=== PATIENT | female | born 1960 ===

== ENCOUNTER 2024-12-19 15:11 | Emergency (ER) | payer BC, SELFPAY ==
--- NOTE | ~2024-12-19 | CT_ITS ---
CLINICAL HISTORY: dizzy headache CT Head without contrast. CT angiography head and neck with contrast. 3D Postprocessing. Comparison: None provided Findings: HEAD CT: No intra-axial mass, midline shift, hydrocephalus, or acute hemorrhage. No significant atrophy-like change or white matter disease. Mucosal thickening of the bilateral ethmoid air cells and left maxillary sinus. The orbits are within normal limits. There is no acute fracture. HEAD AND NECK CTA: Aortic arch and cervical great vessels are patent. Intracranial arteries are patent. No aneurysm, dissection, or occlusion. No abnormal intracranial enhancement. The visualized thyroid gland is unremarkable. No cervical mass or fluid collection. Lung apices clear. No acute fracture. IMPRESSION: 1. Unremarkable head CT. 2. Patent head and neck CTA. This document has been electronically signed by: Fady Hood MD on 12/19/2024 21:45:19
--- OUTSIDE RECORDS SUMMARY | 2024-12-19 14:30 | XMS_ITS | Encounter Summary ---
Author Organization [facility] Address [address] [place] [address] Care Team Providers Care Sql Data Architect Name Role Phone Za Bee MD Primary Care Provider [phone] Reason for Visit * Reason Comments Dizziness Headache Encounter Details Date Type Department Care Team (Late st Contact Info) Description 12/19/2024 2:30 PM EDT Office Visit [address] [phone] Za Bee MD [address] [place] [address] Hypertensive emergency (Primary Dx); Nonintractable episodic headache, unspecified headache type; Dizziness Social History Tobacco Use Types Packs/Day Years Used Date Smoking Tobacco: Never Passive Smoke Exposure: Never Smokeless Tobacco: Never Alcohol Use Standard Drinks/Week Comments Not Currently 0 (1 standard drink = 0.6 oz pur e alcohol) Comments No Sex and Gender Information Value Date Recorded Sex Assigned at Not on file Legal Sex Female 5:36 AM EST Gender Identity Not on file Sexual Orientation Not on file documented as of this encounter Last Filed Vital Signs Vital Sign Reading Time Taken Comments Blood Pressure 168/92 12/19/2024 2:45 PM EDT Pulse 98 12/19/2024 2:45 PM EDT Temperature 36.9 C (98.4 F) 12/19/2024 2:45 PM EDT Respiratory Rate 14 12/19/2024 2:45 PM EDT Oxygen Saturation 98% 12/19/2024 2:45 PM EDT Inhaled Oxygen Concentration - - Weight 68.9 kg (152 lb) 12/19/2024 2:45 PM EDT Height 157.5 cm (5' 2 ) 12/19/2024 2:45 PM EDT Body Mass Index 27.8 12/19/2024 2:45 PM EDT documented in this encounter Progress Notes * Za Bee MD - 12/19/2024 2:30 PM EDT Images from the original note were not included. CHIEF COMPLAINT: Dizziness and Headache IDENTIFIER: Kayy Powell is a 64 y.o. old female. HPI: Patient is a 64-year-old female who presented for an acute visit for evaluation of dizziness and headache. This is my initial visit with the patient, last visit in office was about 2 years ago. Patient reports intermittent of dizziness ongoing for the last 1 month, reports yesterday she had 2episodes of very sharp pain which she described as worst headache that she has ever gotten through her head shooting from her forehead into her ear lasted few minutes and then resolved and then came back and resolved again. No recurrence of headaches but continues to experience intermittent dizziness. No visual disturbance. Patient's vital signs reveal blood pressure of 168/92 (no prior history of hypertension), heart rate 98, 98% on room air, respiratory rate 14. I had a discussion with the patient and given that she has symptoms of ongoing dizziness episodic headache and elevated blood pressure concern is for hypertensive emergency,and patient needs urgent evaluation at the ER with blood work and head imaging. Patient's last blood work was in 2022 which did show she had elevated creatinine levels and requires a urgent recheck on this specially if she hasbeen having elevated blood pressures chronically as she has not been evaluated in 2 years and has not had any recent blood work in 2 years as well ROS: Review of systems: Pertinent items are noted in HPI PAST MEDICAL HISTORY: Patient Active Problem List Diagnosis Date Noted Bipolar disorder ([facility] V24, [facility] V28) 03/01/2024 Fibromyalgia 03/01/2024 Microscopic hematuria 03/01/2024 Dyslipidemia 11/04/2015 Mild dysplasia of cervix 04/11/2006 SOCIAL HISTORY: Social History Tobacco Use Smoking status: Never Passive exposure: Never Smokeless tobacco: Never Substance Use Topics Alcohol use: Not Currently FAMILY HISTORY: Family Status Relation Name Status Mother Alive Father Alive PGF (Not Specified) Other m cousin 40s Neg Hx (Not Specified) Sister Alive Sister Alive Sister Alive Brother Alive Brother Alive No partnership data on file Family History[1] ACTIVE MEDICATIONS: Medications Taking[2] ALLERGIES: Other PHYSICAL EXAM: Blood pressure (!) 168/92, pulse 98, temperature 36.9 ??C (98.4 ??F), temperature source Temporal, resp. rate 14, height 1.575 m (62 ), weight 68.9 kg (152 lb), SpO2 98%. Body mass index is 27.8 kg/m??. Plan is deferred until next visit APPEARANCE: Alert and in no acute distress EYES: PERRLA, conjunctiva and sclera normal HEART: RRR with normal S1 and S2, no murmurs, no gallops, no JVD appreciated LUNG: clear to auscultation bilaterally EXTREMITIES: Extremities warm and well perfused without clubbing, cyanosis, or edema NEURO: Awake, alert and oriented x 3 and Normal gait LABS: IMPRESSION: 1. Hypertensive emergency 2. Nonintractable episodic headache, unspecified headache type 3. Dizziness ASSESSMENT/PLAN: Kayy was seen today for dizziness and headache. Diagnoses and all orders for this visit: Hypertensive emergency (Primary) Nonintractable episodic headache, unspecified headache type Dizziness Plan Patient is a 64-year-old female who presented for an acute visit for evaluation of dizziness and headache. This is my initial visit with the patient, last visit in office was about 2 years ago. Patient reports intermittent of dizziness ongoing for the last 1 month, reports yesterday she had 2episodes of very sharp pain which she described as worst headache that she has ever gotten through her head shooting from her forehead into her ear lasted few minutes and then resolved and then came back and resolved again. No recurrence of headaches but continues to experience intermittent dizziness. No visual disturbance. Patient's vital signs reveal blood pressure of 168/92 (no prior history of hypertension), heart rate 98, 98% on room air, respiratory rate 14. I had a discussion with the patient and given that she has symptoms of ongoing dizziness episodic headache and elevated blood pressure concern is for hypertensive emergency,and patient needs urgent evaluation at the ER with blood work and head imaging. Patient's last blood work was in 2022 which did show she had elevated creatinine levels and requires a urgent recheck on this specially if she hasbeen having elevated blood pressures chronically as she has not been evaluated in 2 years and has not had any recent blood work in 2 years as well - Patient verbalized understanding and agreeable to go to the ER however declines EMS, she is asymptomatic at this time and would like to drive herself. I offered to call patient's daughter however patient declined states that she will update them herself. Patient wishes to go to [facility], heads up call will be placed. No follow-ups on file. No orders of the defined types were placed in this encounter. No results found for this or any previous visit (from the past 4 weeks). Za Bee MD on 12/19/2024 at 3:06 PM EDT [1] Family History Problem Relation Name Age of Onset Thyroid disease Mother Asthma Mother Diabetes Father Hypertension Father Stroke Father Diabetes Paternal Grandfather Other cancer Paternal Grandfather throat Breast cancer Other m cousin 40s Colon cancer Neg Hx Ovarian cancer Neg Hx [2] Outpatient Medications Marked as Taking for the 12/19/24 encounter (Office Visit) with Za Bee MD Medication Sig Dispense Refill bisacodyL (DULCOLAX) 5 mg EC tablet Take 2 tabs at 6pm as directed. lamoTRIgine (LaMICtal) 200 mg tablet Take 200 mg by mouth daily. documented in this encounter Plan of Treatment Upcoming Encounters Date Type Department Care Team (Late st Contact Info) Description 04/17/2025 9:30 AM EST Office Visit Adult Medicine [address] [phone] Za Bee MD [address] [place] [address] documented as of this encounter Visit Diagnoses Diagnosis Hypertensive emergency- Primary Nonintractable episodic headache, unspecified headache type Dizziness Dizziness and giddiness documented in this encounter Discontinued Medications Medication Sig Discontinue Reason Start Date End Da te buPROPion XL (WELLBUTRIN XL) 150 mg 24 hr tablet Take 1 tablet (150 mg total) by mouth 1 (one) time each day. Discontinued by another clinician 11/09/2022 12/19/2024 documented as of this encounter Care Teams Sql Data Architect Relationship Specialty Start Date End Date Za Bee MD [address] [place] [phone] PCP - General 11/23/22 documented as of this encounter
[2024-12-19 15:14] VITALS: BP 184/80; PULSE 69; RESP 18; TEMP 36.6; O2SAT 97; BMI 27.3
--- NOTE | 2024-12-19 15:17 | ED_ITS ---
HPI - General Adult General Chief complaint: Headache Stated complaint: headache Time Seen by Provider: 12/19/24 19:05 Source: patient Limitations: no limitations and other (Poor historian) History of Present Illness ED Provider: Sheeba Conley PA-C HPI narrative: 64-year-old female with a history of bipolar disorder presents with presumed ?dizziness? since the beginning of October. Patient is a very poor historian, when asked if she has been dizzy, she states ?I feel funny in my head ?. When asked if she has a headache, she states ?no, but there is something right here?, as she points to the left parietal region. Denies nausea, vomiting, photophobia, phonophobia. Denies recent illness, fever or neck pain. Changes in position do not recreate the sensation she is experiencing. Denies the use of illicit substances or alcohol. Related Data Allergies Allergy/AdvReac Type Severity Reaction Status Date / Time No Known Allergies Allergy Verified 12/19/24 15:16 Review of Systems 2 Review of Systems: Yes all other systems are reviewed and are negative Constitutional: Constitutional: Denies fatigue, Denies fever(s) and Reports headache(s) Eyes: Eyes: Denies change in vision ENT: Denies vertigo, Reports dizziness, Reports headache(s) and Denies neck pain Cardiovascular: Cardiovascular: Denies chest pain and Denies dyspnea Respiratory: Respiratory: Denies cough and Denies dyspnea Gastrointestinal: Gastrointestinal: Denies abdominal pain, Denies nausea and Denies vomiting Musculoskeletal: Musculoskeletal: Denies neck pain Neurologic: Denies vertigo, Reports dizziness and Reports headache(s) Endocrine: Endocrine: Denies fatigue [facility] Past Medical History Attestation statement: The following information was validated with the patient. Social History Social History Alcohol intake: never Use of substances other than those prescribed or required for medical reasons: No Advance Directives: No Advance Directives Information Provided: Yes Patient : No Physical Exam ED Vital Signs: Vital Signs - 24 hr 12/19/24 15:14 12/19/24 18:46 12/19/24 20:08 Temperature 97.9 F Pulse Rate 69 59 53 Respiratory Rate 18 18 Blood Pressure 184/80 H 158/72 H 129/67 Pulse Oximetry 97 97 Oxygen Delivery Method Room Air Room Air 12/19/24 20:12 12/19/24 20:13 12/19/24 20:27 Temperature 97.6 F Pulse Rate 55 58 62 Respiratory Rate 12 Blood Pressure 145/80 H 135/77 135/77 Pulse Oximetry 97 Oxygen Delivery Method Room Air 12/20/24 00:23 Temperature 97.4 F Pulse Rate 52 Respiratory Rate 12 Blood Pressure 141/78 H Pulse Oximetry 99 Oxygen Delivery Method Room Air BMI result Body Mass Index 27.3 Const Other: Alert well-appearing Orientation/consciousness: patient oriented x3 Eyes Other: No nystagmus Resp Effort & Inspection: normal respiratory effort Cardio Other: Normal peripheral perfusion Skin Other: Warm dry no rash Neuro Other: No ataxia General: patient oriented x3, gait normal, no focal motor deficits and CN's II- XI intact bilaterally Psych Other: Cooperative NIH Stroke Scale Level of Consciousness: Alert Level of Consciousness Questions: Answers both questions correctly Level of Consciousness Commands: Performs both tasks correctly Best Gaze: Normal Visual: No visual loss Facial Palsy: Normal Motor Arm (Right): No drift Motor Arm (Left): No drift Motor Leg (Right): No drift Motor Leg (Left): No drift Limb Ataxia: Absent Sensory: Normal Best Language: No aphasia Dysarthia: Normal Extinction and Inattention: No abnormality Score: 0 Course Course Course Narrative: This is an RME: Additional HPI, ROS, PE not included below will be deferred to primary provider. RME assessment and note performed by: Leni Bo PA-C This is a 64-year-old female who presents emergency department with complaints of dizziness ongoing since October. She also reports that she has had some headaches with sharp pain shooting across her as since yesterday. Denies any vision changes. Neuro are intact. Dizziness is unchanged with positional changes. Plan: Labs, EKG, further ER evaluation needed. Medications Administered Discontinued Medications Generic Name Dose Route Start Last Admin Trade Name Freq PRN Reason Stop Dose Admin Acetaminophen 1,000 mg in 100 mls @ 400 mls/hr 12/19/24 19:37 12/19/24 20:55 Ofirmev IV 12/19/24 19:51 Infused ONCE ONE Infusion Iohexol 100 ml 12/19/24 20:52 12/19/24 20:53 Iohexol 350 Mg/Ml 100 Ml Infus..Btl IV 12/19/24 20:53 70 ml ONCE ONE Administration Medical Decision Making Medical Decision Making MDM Narrative: 64-year-old female with a history of bipolar disorder presents with presumed ?dizziness? since the beginning of October. Patient is a very poor historian, when asked if she has been dizzy, she states ?I feel funny in my head ?. When asked if she has a headache, she states ?no, but there is something right here?, as she points to the left parietal region. Denies nausea, vomiting, photophobia, phonophobia. Denies recent illness, fever or neck pain. Changes in position do not recreate the sensation she is experiencing. Denies the use of illicit substances or alcohol. Problem: Bipolar disorder History: Per patient I have considered the following differential diagnoses: CVA, vertigo, meningitis, migraine, dehydration, arrhythmia, electrolyte abnormality, orthostasis , ACS Plan: ACS was considered, however the patient has no risk factors for coronary artery disease beyond her age. Screening labs including EKG and a troponin obtained. There was also no new arrhythmia documented on the EKG to account for her suspect dizziness, she also has not complained of palpitations. There were no underlying organic causes for her symptoms; i.e. dehydration, anemia. Thought about meningitis, however no meningeal signs on exam in his she does not complain of neck pain. Her symptoms are also not vertiginous in nature. The greatest concern would be potential posterior circulation stroke, although she has had symptoms to some degree for a month, she is not objectively ataxic. We will order angiograms. Obtain orthostatic vitals, they are normal. I have independently reviewed the following tests: Labs: No leukocytosis, not anemic, no electrolyte abnormality troponin less than 2.7 EKG: Normal sinus rhythm, rate of 64, no ischemic changes no ectopy QTC 420, nonspecific ST abnormality noted CT angio head/neck: IMPRESSION: 1. Unremarkable head CT. 2. Patent head and neck CTA. Differential Diagnosis Differential Diagnoses: The differential diagnosis associated with the presentation includes See medical decision-making Admission/Observation Consideration of admission/observation: Escalation of care including admission/observation considered Not applicable Lab Data MDM Lab Attestation statement: I reviewed the patient's lab results. 12/19/24 15:29 12/19/24 15:29 Labs: Lab Results 12/19/24 Range/Units 15:29 WBC 5.9 (4.8-10.8) X10*3/uL RBC 5.10 (4.20-5.50) X10*6/uL Hgb 13.4 (12.0-16.0) g/dl Hct 41.8 (37.0-47.0) % MCV 82.0 (80.0-98.0) fL MCH 26.3 L (27.0-33.0) pg MCHC 32.1 (31.0-35.0) g/dl RDW 12.5 (11.0-16.0) % Plt Count 254 (160-400) X10*3/uL MPV 10.6 (9.4-12.3) fL Immature Gran % (Auto) 0.2 (0.0-0.4) % Neut % (Auto) 57.9 (45-73) % Lymph % (Auto) 30.9 (20-40) % Imperial % (Auto) 6.8 (2-11) % Eos % (Auto) 3.2 (0-4) % Baso % (Auto) 1.0 (0-2) % Lymph # (Auto) 1.8 (1.2-4.9) X10*3/uL Imperial # (Auto) 0.4 (0.1-1.2) X10*3/uL Eos # (Auto) 0.2 (0.0-0.4) X10*3/uL Baso # (Auto) 0.1 (0.0-0.2) X10*3/uL Abs Immat Gran (auto) 0.01 (0.00-0.03) X10*3/uL Absolute Neuts (auto) 3.4 (2.0-8.3) x10*3/uL Absolute Nucleated RBC 0.000 (0.0-0.012) X10*3/uL Nucleated RBC % (auto) 0.0 (0.0-0.2) /100WBC Sodium 144 (135-145) mmol/L Potassium 3.6 (3.3-5.1) mmol/L Chloride 110 H (96-108) mmol/L Carbon Dioxide 26 (22-29) mmol/L Anion Gap 12 (12-20) BUN 17 H (9-16) mg/dL Creatinine 0.89 (0.5-1.4) mg/dL Estim Creat Clear Calc 59.2 Estimated GFR > 60 Random Glucose 105 (60-115) mg/dL Calcium 9.7 (8.4-10.2) mg/dL Magnesium 2.2 (1.6-2.6) mg/dL Total Bilirubin 0.3 (0.0-1.0) mg/dL Direct Bilirubin 0.1 (0.0-0.5) mg/dL AST 21 (5-31) U/L ALT 32 H (0-31) U/L Alkaline Phosphatase 59 (39-117) U/L Troponin I High Sens < 2.7 (<3.5-17.0) ng/L Total Protein 7.3 (6.5-8.0) g/dL Albumin 4.6 (3.5-5.0) g/dL Independent Interpretation I performed an independent interpretation of an: EKG Radiology Impression Discussion of test interpretation with radiology: I have reviewed the radiologist's reading. Discharge Plan Discharge Clinical Impression: Dizziness Patient Disposition: Home, Self-Care Instructions: Dizziness (ED) Additional Instructions: You were assessed for a stroke, your assessment was completely normal. You had no lab abnormalities, you were not dehydrated. Continue to follow up with your primary care. Print Language: Sri Lankan
--- NOTE | 2024-12-19 15:20 | ECG_ITS ---
Test Reason : dizziness Blood Pressure : */* mmHG Vent. Rate : 64 BPM Atrial Rate : 64 BPM P-R Int : 172 ms QRS Dur : 98 ms QT Int : 408 ms P-R-T Axes : 17 -3 47 degrees QTcB Int : 420 ms Normal sinus rhythm Minimal voltage criteria for LVH, may be normal variant ( [place] product ) Nonspecific ST abnormality Abnormal ECG No previous ECGs available Referred By: Leni Bo Electronically Signed By: DAVID LENNON MD
[2024-12-19 15:41] LABS: MANUAL DIFF FLAG NO
[2024-12-19 15:43] LABS: Hematocrit 41.8 % (37.0-47.0); Hemoglobin 13.4 g/dl (12.0-16.0); Imm Gran Abs Auto 0.01 X10*3/uL (0.00-0.03); Imm Gran Pct Auto 0.2 % (0.0-0.4); Lymphocytes Absolute Auto 1.8 X10*3/uL (1.2-4.9); Mean Corpuscular HGB Conc 32.1 g/dl (31.0-35.0); Mean Corpuscular Hemoglobin 26.3 pg (27.0-33.0); Mean Corpuscular Volume 82.0 fL (80.0-98.0); NRBC Abs Auto 0.000 X10*3/uL (0.0-0.012); NRBC Pct Auto 0.0 /100WBC (0.0-0.2); Platelet Count 254 X10*3/uL (160-400); Red Blood Count 5.10 X10*6/uL (4.20-5.50); White Blood Count 5.9 X10*3/uL (4.8-10.8)
[2024-12-19 15:57] LABS: Alanine Aminotransferase 32 U/L (0-31); Albumin Level 4.6 g/dL (3.5-5.0); Alkaline Phosphatase 59 U/L (39-117); Anion Gap 12 (12-20); Aspartate Amino Transferase 21 U/L (5-31); Blood Urea Nitrogen 17 mg/dL (9-16); Calcium 9.7 mg/dL (8.4-10.2); Carbon Dioxide 26 mmol/L (22-29); Chloride 110 mmol/L (96-108); Creatinine Clr Calc Pharmacy 59.2; Estimated Glomerular Filt Rate > 60; Magnesium 2.2 mg/dL (1.6-2.6); Potassium 3.6 mmol/L (3.3-5.1); Sodium 144 mmol/L (135-145); Total Protein 7.3 g/dL (6.5-8.0)
[2024-12-19 16:08] LABS: Troponin-I High Sensitivity < 2.7 ng/L (<3.5-17.0)
[2024-12-19 18:46] VITALS: BP 158/72; PULSE 59; RESP 18; O2SAT 97
--- OUTSIDE RECORDS SUMMARY | 2024-12-19 19:43 | XMS_ITS | Encounter Summary ---
Author Organization [facility] Address [address] [place] [address] Care Team Providers Care Rayon Tester Name Role Phone Za Bee MD Primary Care Provider [phone] Reason for Visit * Reason Onset Date Comments Dizziness 12/19/2024 Encounter Details Date Type Department Care Team ([facility] st Contact Info) Description 12/19/2024 Telephone Adult Medicine [facility] [address] [place] [address] Za Bee MD [address] [place] [address] Social History Tobacco Use Types Packs/Day Years [...] on file documented as of this encounter Progress Notes * Za Bee MD - 12/19/2024 2:15 PM EDT My recommendation would be the same to go to the ER given symptoms of dizziness with severe headache. I have asked Marilyn to bring the patient in so I can convey the same and have a discussion withher, since she is refusing to leave * Katarzyna Laguna RN - 12/19/2024 1:35 PM EDT Pt is C/O dizziness starting suddenly last month , one or two episodes , she called 11/07 and 11/08 and was advised to go to the er , she did not go Pt had sudden onset of dizziness again on Monday she went to the school nurse BP was normal Yesterday pt was dizzy and she has 2 episodes of a very sharp pain ( worst headache pain she has ever had shot through her head ) shooting thought her head from her forehead into her ear, lasted justminutes then gone, came back pain , no VENEGAS since but she is still dizzy Pt denies any chest pain or SOB, denies any changes in HR, no recent N/V/D or head trauma, pt has no confusion or changes in speech, no weakness or numbness, denies headache or any changes in vision., pt has not changed or stopped medication or caffeine intake Pt feels dizzy now , off balance Pt is advised to go to the ed , she has refused she is in the lobby and states she is not l;leavinguntil she is seen * Karen Onofre - 12/19/2024 1:25 PM EDT Patient call requires triage: Symptoms patient is presenting: Dizziness How long has patient had these symptoms?: over a month For ALL patients calling to schedule any appointment (routine, sick visit, follow up, consult, etc.) in the outpatient setting please ask the following questions: Do you have fever of higher than 101, sore throat with difficulty swallowing or severe shortness ofbreath? no If YES to any of these above symptoms, send a message to triage and do not book. Red dot. If no, an audio or video visit should be booked. Have you had close contact with someone with Coronavirus in the last 14 days? no Have you traveled abroad? no Have you traveled recently to another state outside of [place], [place], [place], [place], [place], [place], [place]? no o If yes, did you quarantine for 14 days or have a negative covid test? no If yes to any of the above, patient is not to be scheduled in office until after 14 day quarantine or negative covid test. If pain or injury related was it due to an accident at work or from a motor vehicle accident? If yes, date of accident/Injury: No If yes, gather 3rd alliance party insurance information Third Green Party Information: not applicable PCP: Za Bee MD Payor: JENNIFER Ramirez MA / Plan: [facility] HMO / Product Type: *No Product type* / documented in this encounter Plan of Treatment Upcoming Encounters Date Type Department Care Team (Late st Contact Info) Description 04/17/2025 9:30 AM EST Office Visit Adult Medicine [address] [phone] Za Bee MD [address] [place] [address] documented as of this encounter Visit Diagnoses Not on filedocumented in this encounter Care Teams Rayon Tester Relationship Specialty Start Date End Date Za Bee MD [address] [place] [address] PCP - General 11/23/22 documented as of this encounter
--- OUTSIDE RECORDS SUMMARY | 2024-12-19 19:43 | XMS_ITS | Clinical Summary ---
Author Organization [address] Address [address] [place] [address] Phone Care Team Providers [employer] Name Role Phone Za Bee MD Primary Care Provider [phone] Allergies Active Allergy Reactions Criticality Noted Date Comments Other 04/20/2022 Seasonal Medications bisacodyL (DULCOLAX) 5 mg EC tablet Take 2 tabs at 6pm as directed. 4 Active lamoTRIgine (LaMICtal) 200 mg tablet Take 200 mg by mouth daily. Active MULTIVITAMIN ORAL Take by mouth daily. Active buPROPion XL (WELLBUTRIN XL) 150 mg 24 hr tablet Take 1 tablet (150 mg total) by mouth 1 (one) time each day. 3 12/20/19 25 Discontinue d(Discontin ued by another clinician) Active Problems Problem Noted Date Diagnosed Date Bipolar disorder ([facility] V24, [facility] V28) 04/2024 Overview (03/01/2024): Seeing therapist, waiting to see psychiatry Fibromyalgia 03/01/2024 Microscopic hematuria 03/01/2024 Dyslipidemia 11/04/2015 Mild dysplasia of cervix 04/11/2006 Encounters Date Type Department Care Team Description 12/19/2024 2:30 PM EDT Office Visit Adult Medicine [address] [phone] Za Bee MD Hypertensive emergency (Primary Dx); Nonintractable episodic headache, unspecified headache type; Dizziness 12/19/2024 Telephone Adult Medicine [address] [phone] Za Bee MD 11/08/2024 Telephone Adult Medicine [address] [phone] Za Bee MD 11/07/2024 Telephone Adult Medicine [address] [phone] Za Bee MD from Last 3 Months Immunizations Immunization Administration Dates Next Due Hepatitis B (Ikbppyn-D-Njxzp , Recombivax HB-Adult) 19yo and older 01/11/2006,11/23/2005 Influenza Quadravalent, MDCK , 0.5ml, preservative free (Flucelvax) 6mo and older 11/28/2022,05/15/2019,02/12/2018 Influenza trivalent, 0.5mL, preservative free (Fluarix; FluLaval; Fluzone) ages 6mo and older (Afluria) 3 years and older 12/08/2014,12/20/2013,02/11/2006 PPD Test 11/04/2015, 5,10/02/2013,2005 Td Tetanus diptheria (Tdvax) 7yo and older 11/23/2005 Tdap Tetanus diptheria acell ular pertussis (Boostrix; Adacel) 7yo and older 11/28/2022,09/11/2012 Surgical History Surgery Date Site/Laterality Comments TUBAL LIGATION PROCEDURE: HISTORICAL TUBAL LIGATION CERVICAL BIOPSY W/ LOOP ELECTRODE EXCISION 04/24/06 PROCEDURE: [facility] CONIZATION CERVIX W/WO D&C RPR ELTRD EXC; COMMENT: SHAZIA 1 with free margins COLONOSCOPY W/ BIOPSIES 04/01/2014 PROCEDURE: [facility] COLONOSCOPY W/BIOPSY SINGLE/MULTIPLE; COMMENT: 5 mm RC polyp: Sessile serrated adenoma. VENTRAL HERNIA REPAIR 09/03/15 PROCEDURE: HISTORICAL VTRL WALL HERNIA RE Medical History Medical History Date Comments Bipolar disorder (CMS/HCC V24, CMS/HCC V28) DX:Bipolar disorder (HCC) Fibromyalgia DX:Fibromyalgia Dyslipidemia DX:Dyslipidemia Microscopic hematuria DX:Microsc opic hematuria Family History Medical History Relation Name Comments Diabetes Father Hypertension Father Stroke Father Asthma Mother Thyroid disease Mother Breast cancer Other m cousin 40s Diabetes Paternal Grandfather Other cancer Paternal Grandfather throat Colon cancer Neg Hx Ovarian cancer Neg Hx Relation Name Status Comments Brother 1 Alive Brother 2 Alive Father Alive Mother Alive Other m cousin 40s Paternal Grandfather Sister 1 Alive Sister 2 Alive Sister 3 Alive Social History Tobacco Use Types Packs/Day Years [...] on file Sexual Orientation Not on file Obstetrics History Last Filed Vital Signs Vital Sign Reading [...] Mass Index 27.8 12/19/2024 2:45 PM EDT Plan of Treatment Upcoming Encounters Date Type Department Care Team (Late st Contact Info) Description 04/17/2025 9:30 AM EST Office Visit Adult Medicine [address] [phone] Za Bee MD [address] [place] [address] Health Maintenance Due Date Last Done Comments Hepatitis B Vaccines (3 of 3 - 19+ 3-dose series) 05/23/2006 01/11/2006, 11/23/2005 Pneumococcal Vaccine: 50+ Years (1 of 1 - PCV) 02/28/2012 Zoster Vaccines (1 of 2) 02/28/2012 Social Influencers of Health Screening 02/05/2022 Depression Screening 02/28/2024 COVID-19 Vaccine (4 - season) 2024 05/08/2021, 06/20/2020, 05/23/2020 Influenza Vaccine (#1) 2024 , 05/15/2019, 02/12/2018, Additional history exists Breast Cancer Screening 12/07/2024 12/08/19, 05/01/2021, 03/07/2020, Additional history exists Hypertension/CHF/CAD Annual BMP Blood Test 12/19/2024 Cholesterol Screening (Lipid Panel) 11/29/2027 11/28/2022 Cervical Cancer Screening: HPV 03/03/2028 03/03/2023 Colorectal Cancer Screening: Colonoscopy 08/23/2028 08/24/2023 DTaP,Tdap,and Td Vaccines (4 - Td or Tdap) 11/28/2032 11/28/2022, 09/11/2012, 11/23/2005 RSV Immunization Adult Patients (1 - 1-dose 75+ series) 2037 HIV Screening Completed 02/21/2018 Hepatitis C Screening Completed 02/21/2018 HIB Vaccines Aged Out No longer eligi ble based on patient's age to complete this topic HPV Vaccines Aged Out No longer eligi ble based on patient's age to complete this topic Hepatitis A Vaccines Aged Out No long er eligible based on patient's age to complete this topic IPV Vaccines Aged Out No longer eligi ble based on patient's age to complete this topic MMR Vaccines Aged Out No longer eligi ble based on patient's age to complete this topic Meningococcal ACWY Vaccine Aged Out N o longer eligible based on patient's age to complete this topic Meningococcal B Vaccine Aged Out No l onger eligible based on patient's age to complete this topic RSV Immunization Patients Under 20 months Aged Out No longer eligible based on patient's age to complete this topic Varicella Vaccines Aged Out No longer eligible based on patient's age to complete this topic Procedures Procedure Name Priority Date/Time Associated Diagnosis Comments COLONOSCOPY Routine 08/24/2023 HPV Routine 03/03/2023 SCREENING MAMMOGRAPHY BI 2-VIEW BREAST INC CAD Routine 12/07/2022 6:18 PM EDT Encounter for screening mammogram for malignant neoplasm of breast LIPID PANEL Routine 11/28/2022 HEPATITIS C SCREENING Routine 02/21/2018 HIV SCREENING Routine 02/21/2018 from Last 3 Months or Most Recently Relevant to Health Maintenance Results * Colonoscopy (08/24/2023) Colonoscopy no interpretation , abstracted Anatomical Region Laterality Modality Other us Historical Provider MD HEALTH MAINTENANCE Final Result * Cervical Cancer Screening: HPV (03/03/2023) Cervical Cancer Screening: HPV abstracted, negative us Historical Provider MD HEALTH MAINTENANCE Final Result * SCREENING MAMMOGRAPHY BI 2-VIEW BREAST INC CAD (12/07/2022 6:18 PM EDT) Anatomical Region Laterality Modality Radiographic Juliane ging 05/01/2021 11:3 4 AM EST Narrative 12/08/2022 5:55 PM EDT This is a summary report. The complete report is available in the patient's medical record. If you cannot access the medical record, please contact the sending organization for a detailed fax or copy. Exam: Screening mammogram Findings: Digital bilateral full-field screening mammography is performed with tomosynthesis and interpreted with the aid of computer-aided detection. Comparison is made with 05/01/2021 and as far back as 11/24/2018. Breast parenchyma is composed of scattered fibroglandular densities. No new suspicious mass, architectural distortion, or suspicious calcifications. Impression: No mammographic evidence of malignancy. BI-RADS 1 - negative Procedure Note Jolie López MD - 04/03/2023 This is a summary report. The complete report is available in thepatient's medical record. If you cannot access the medical record, pleasecontact the sending organization for a detailed fax or copy. Exam: Screening mammogram Findings: Digital bilateral full-field screening mammography is performedwith tomosynthesis and interpreted with the aid of computer-aideddetection. Comparison is made with 05/01/2021 and as far back as11/24/2018. Breast parenchyma is composed of scattered fibroglandular densities. Nonew suspicious mass, architectural distortion, or suspiciouscalcifications. Impression: No mammographic evidence of malignancy. BI-RADS 1 - negative Result [facility] Misa RICHTER IMG XR PROCEDURES Final Result * (ABNORMAL) Lipid panel (11/28/2022) Pathologist [facility] LDL/HDL Ratio 4 0 - 4 Triglycerides 230(A) 0 - 150 mg/dL Cholesterol 224(A) 0 - 200 mg/dL HDL 61 >=40 mg/dL LDL Cholesterol 117(A) 0 - 100 mg/dL Blood Venous blood specimen / Unknown Result [facility] Provider LAB BLOOD ORDERABLES Keiry l Result * HIV Screening (02/21/2018) Pathologist [facility] HIV Screening abstracted [facility] Provider HEALTH MAINTENANCE Final Result * Hepatitis C Screening (02/21/2018) [facility] Hepatitis C Screening abstracted [facility] Provider HEALTH MAINTENANCE Final Result from Last 3 Months or Most Recently Relevant to Health Maintenance Insurance [facility] Care Teams [employer] Usher Relationship Specialty Start Date End Date Za Bee MD [address] [place] [address] PCP - General 11/23/22
[2024-12-19 20:08] VITALS: BP 129/67; PULSE 53
[2024-12-19 20:12] VITALS: BP 145/80; PULSE 55
[2024-12-19 20:13] VITALS: BP 135/77; PULSE 58
[2024-12-19 20:27] VITALS: BP 135/77; PULSE 62; RESP 12; TEMP 36.4; O2SAT 97
[2024-12-19] MEDS: iohexoL 350 MG/ML 100 ML INFUS..BTL IV (20:53)
[2024-12-20 00:23] VITALS: BP 141/78; PULSE 52; RESP 12; TEMP 36.3; O2SAT 99
[2024-12-20 01:21] VITALS: BP 141/78; PULSE 52; RESP 18; TEMP 36.3; O2SAT 95
== END 2024-12-20 01:23 | disposition home or self-care (01) ==
PROVIDERS: Physician Assistant Medical; Emergency Provider Emergency Medicine
DX: R42 Dizziness and giddiness (principal); R51.9 Headache, unspecified; R94.31 Abnormal electrocardiogram [ECG] [EKG]; Z79.899 Other long term (current) drug therapy
CPT/HCPCS: 36415; 70496; 70498; 80048; 80076; 83735; 84484; 85025; 93005; 96365; 99285; J0131; Q9967

== ENCOUNTER → 2024-12-19 15:20 | Outpatient (BNV) | payer BC, SELFPAY | PROVIDERS: Visit Provider Internal Medicine Cardiovascular Disease | DX: R94.31 Abnormal electrocardiogram [ECG] [EKG] (principal); R42 Dizziness and giddiness | CPT/HCPCS: 93010 ==

== ENCOUNTER → 2024-12-19 19:37 | Outpatient (BNV) | payer BC, SELFPAY | PROVIDERS: Emergency Provider Emergency Medicine; Visit Provider Radiology Diagnostic Radiology | DX: R42 Dizziness and giddiness (principal); R51.9 Headache, unspecified | CPT/HCPCS: 70496; 70498 ==

== ENCOUNTER 2025-01-18 11:06 | Emergency (ER) | payer BC, SELFPAY ==
[2025-01-18 11:11] VITALS: BP 143/85; PULSE 78; RESP 18; TEMP 36.6; O2SAT 100; BMI 27.4
--- NOTE | 2025-01-18 11:18 | ED_ITS ---
HPI - Neck Pain/Injury General Chief Complaint: Neck Pain/Injury Stated Complaint: neck pain Time Seen by Provider: 01/18/25 11:12 Source: patient Mode of arrival: ambulatory Limitations: no limitations History of Present Illness ED Provider: Dr. Ricardo Davis HPI Narrative: 64-year-old female with a history of bipolar disorder who presents emergency department for evaluation of left neck pain x4 days. The patient states that she woke up 4 days prior with pain in her neck. The pain has gotten progressively worse to the point where she is unable to turn her neck to the left. She states the pain is a constant, sharp/pressure-like pain which is 10/10 at its worst. She did not take any medications for the pain. She denied any numbness or weakness of her upper extremities. She denied loss of bowel or bladder control. Patient denies tobacco, alcohol or injection drug use. She does not recount any recent injury to her neck Related Data Previous Rx's ?Medication ?Instructions ?Recorded cyclobenzaprine 10 mg tablet 10 mg PO TID PRN pain, mu scle 01/18/25 spasm #15 tabs Allergies Allergy/AdvReac Type Severity Reaction Status Date / Time No Known Allergies Allergy Verified 01/18/25 11:14 Review of Systems Review of Systems: Yes all other systems are reviewed and are negative [facility] Past Medical History [facility] Narrative: Social history: She denies tobacco, alcohol and injection drug use. Social History Social History Alcohol intake: never Smoked in Last 30 Days: No Use of substances other than those prescribed or required for medical reasons: No Advance Directives: No Advance Directives Information Provided: No Do you have a plan to hurt others: No Plan Patient : No Physical Exam Vital Signs: Vital Signs: Last Vital Signs Temp 97.8 F 01/18/25 11:11 Pulse 78 01/18/25 11:11 Resp 18 01/18/25 11:11 BP 143/85 H 01/18/25 11:11 Pulse Ox 100 01/18/25 11:11 O2 Del Method Room Air 01/18/25 11:11 BMI result Body Mass Index 27.4 Vital signs revealed an elevated blood pressure of 143/85 otherwise unremarkable Exam: General: Awake, alert in no distress Head: Normocephalic, atraumatic EENT: PERRL, sclera and conjunctiva are normal, mouth with no erythema or exudates Neck: The patient has tenderness palpation of her left trapezius muscle with spasm of this muscle and limited rotation of her head to the left secondary to pain and spasm Lung: breath sounds symmetric, no wheezing, no rales and no rhonchi Chest: symmetric movement, nontender Heart: regular rate and rhythm, normal S1, S2 no murmurs or rubs Abdomen: soft, non-tender, nondistended, normal bowel sounds Back: no vertebral tenderness, no CVAT Extremities: no deformities, moves all extremities symmetrically, no edema Neuro: Awake, alert, oriented, normal speech, cranial nerves 2-12 intact, moves all extremities symmetrically Psych: Pleasant, cooperative Medical Decision Making Medical Decision Making MDM Narrative: 64-year-old female with a history of bipolar disorder who presents emergency department for evaluation of left neck pain x4 days. The patient states that she woke up 4 days prior with pain in her neck. The pain has gotten progressively worse to the point where she is unable to turn her neck to the left. She states the pain is a constant, sharp/pressure-like pain which is 10/10 at its worst. She did not take any medications for the pain. She denied any numbness or weakness of her upper extremities. She denied loss of bowel or bladder control. Patient denies tobacco, alcohol or injection drug use. She does not recount any recent injury to her neck. Vital signs revealed an elevated blood pressure of 143/85 otherwise unremarkable. Exam is consistent with muscle spasm of the left trapezius muscle otherwise exam is unremarkable. Differential diagnosis: ?Includes but is not limited to trapezius strain/spasm, cervical sprain, degenerative joint disease, degenerative disc disease, nerve compression Course: 11:50 Patient was treated with Toradol 60 mg IM and given a hot pack to apply to her left trapezius muscle. Patient was advised to take Tylenol and ibuprofen for pain. She was prescribed Flexeril (cyclobenzaprine) 10 mg 3 times a day as needed for spasm. She was given printed and verbal instructions and discharged home. Differential Diagnosis Differential Diagnoses: The differential diagnosis associated with the presentation includes (See above) Admission/Observation Consideration of admission/observation: Escalation of care including admission/observation considered (No) Prescription Management I considered prescription management with: Other (Prescription for anti spasmodic: Cyclobenzaprine) Chronic Conditions Patient?s care impacted by: Other (Bipolar disorder) Discharge Plan Discharge Clinical Impression: Spasm of left trapezius muscle, Strain of left trapezius muscle Patient Disposition: Home, Self-Care Instructions: Muscle Strain (ED), Muscle Spasm (ED) Additional Instructions: Your exam is consistent with an injury/strain of your left neck muscle (trapezius muscle). This muscle also is in spasm and that is why you are having difficulty moving your neck. You were treated here in the emergency department with a strong intramuscular anti-inflammatory medication called Toradol (ketorolac). Take ibuprofen 200 mg pills, 2 pills every 6 hours as needed for pain or fever. Take Tylenol (acetaminophen) 500 mg pills, 2 pills every 6 hours as needed for pain or fever. Take Flexeril (cyclobenzaprine) 10 mg pills, 1 pill every 6-8 hours as needed for pain or spasm. ?This medication will make you sleepy. ?Do not drive or work while taking this medication. Apply heating pad on low for 15 minutes 4 to 6 times a day for the next 3-4 days to help reduce the pain in your neck. Follow-up with your doctor in 2 days. Please return to the emergency department if your symptoms get worse or if you develop any symptoms that are concerning to you. Prescriptions: New cyclobenzaprine 10 mg tablet 10 mg PO TID PRN (Reason: pain, muscle spasm) Qty: 15 0RF Print Language: Kenyan
--- NOTE | 2025-01-18 11:22 | PC.NURSE ---
Patient presents to ED with left sided neck 10/10 pain that started a couple days ago . Denies any blurry vision or associated headache. Mobility limited in neck due to pain. Neuro exam intact. VSS.
--- OUTSIDE RECORDS SUMMARY | 2025-01-18 11:35 | XMS_ITS | Clinical Summary ---
Author Organization [address] Address [address] [place] [address] Phone Care Team Providers Care Phone Operator Name Role Phone Za Bee MD Primary Care Provider [phone] Allergies Active Allergy Reactions Criticality Noted Date Comments Other 04/20/2022 Seasonal Medications lamoTRIgine (LaMICtal) 200 mg tablet Take 200 mg by mouth daily. Active MULTIVITAMIN ORAL Take by mouth daily. Active cyclobenzaprine (FLEXERIL) 5 mg tablet Take 1 tablet (5 mg total) by mouth at bedtime as needed for muscle spasms. 30 tablet 5 02/26/20 25 Active bisacodyL (DULCOLAX) 5 mg EC tablet Take 2 tabs at 6pm as directed. 4 12/28/19 25 Discontinu ed(Therapy completed) Active Problems Problem Noted Date Diagnosed Date Bipolar disorder ([facility] V24, [facility] V28) 04/2024 Overview (03/01/2024): Seeing therapist, waiting to see psychiatry Fibromyalgia 03/01/2024 Microscopic hematuria 03/01/2024 Dyslipidemia 11/04/2015 Mild dysplasia of cervix 04/11/2006 Encounters Date Type Department Care Team Description 01/01/2025 4:57 PM EST - 01/01/2025 11:59 PM EST Hospital Encounter Radiology Department - [address] [phone] Dizziness Discharge Disposition: Home or Self Care 12/30/2024 Results Follow-Up Adult [facility] [place] - [address] [phone] Za Bee MD 12/27/2024 9:30 AM EDT Lab Draw [address] Dyslipidemia 12/27/2024 8:30 AM EDT Office Visit [address] [phone] Za Bee MD Dyslipidemia (Primary Dx); Dizziness; Strain of trapezius muscle, unspecified laterality, initial encounter; Strain of right hamstring, initial encounter; Need for prophylactic vaccination and inoculation against influenza 12/19/2024 2:30 PM EDT Office Visit [address] [phone] Za Bee MD Hypertensive emergency (Primary Dx); Nonintractable episodic headache, unspecified headache type; Dizziness 12/19/[address] [phone] Za Bee MD 11/08/[address] [phone] Za Bee MD 11/07/[address] [phone] Za Bee MD from Last 3 Months Immunizations Immunization Administration Dates Next Due Hepatitis B (Vpnserc-F-Vukkr , Recombivax HB-Adult) 19yo and older 01/11/2006,11/23/2005 Influenza Quadravalent, MDCK , 0.5ml, preservative free (Flucelvax) 6mo and older 11/28/2022,05/15/2019,02/12/2018 Influenza trivalent, 0.5mL, preservative free (Fluarix; FluLaval; Fluzone) ages 6mo and older (Afluria) 3 years and older 12/08/2014,12/20/2013,02/11/2006 Influenza trivalent, MDCK, 0 .5mL, preservative free (Flucelvax) 6mo and older 12/27/2024 Influenza trivalent, with preservative (Fluzone; Afluria) 6mo and older 12/08/2014,12/20/2013,02/11/2006 PPD Test 11/04/2015, 5,10/02/2013,2005 Td Tetanus diptheria (Tdvax) 7yo and older 11/23/2005 Tdap Tetanus diptheria acell ular pertussis (Boostrix; Adacel) 7yo and older 11/28/2022,09/11/2012 Surgical History Surgery Date Site/Laterality Comments TUBAL LIGATION PROCEDURE: HISTORICAL TUBAL LIGATION CERVICAL BIOPSY W/ LOOP ELECTRODE EXCISION 04/24/06 PROCEDURE: WY CONIZATION CERVIX W/WO D&C RPR ELTRD EXC; COMMENT: SHAZIA 1 with free margins COLONOSCOPY W/ BIOPSIES 04/01/2014 PROCEDURE: WY COLONOSCOPY W/BIOPSY SINGLE/MULTIPLE; COMMENT: 5 mm RC polyp: Sessile serrated adenoma. VENTRAL HERNIA REPAIR 09/03/15 PROCEDURE: HISTORICAL VTRL WALL HERNIA RE Medical History Medical History Date Comments Bipolar disorder (CMS/HCC V24, [facility] V28) DX:Bipolar disorder (HCC) Fibromyalgia DX:Fibromyalgia Dyslipidemia [...] Sign Reading Time Taken Comments Blood Pressure 110/70 12/27/2024 8:42 AM EDT Pulse 70 12/27/2024 8:42 AM EDT Temperature 36 C (96.8 F) 12/27/2024 8:42 AM EDT Respiratory Rate 14 12/27/2024 8:42 AM EDT Oxygen Saturation 95% 12/27/2024 8:42 AM EDT Inhaled Oxygen Concentration - - Weight 69.9 kg (154 lb 1.6 oz) 12/27/2024 8:42 A M EDT Height 157.5 cm (5' 2 ) 12/27/2024 8:42 AM EDT Body Mass Index 28.19 12/27/2024 8:42 AM EDT Plan of Treatment Upcoming Encounters Date Type Department Care Team (Late st Contact Info) Description 01/21/2025 4:00 PM EST Evaluation Outpatient Rehabilitation - [address] [phone] Sumanth Gonzalez, KALLIE 04/17/2025 9:30 AM EST Office Visit Adult [facility] [place] - [address] [phone] Za Bee MD [address] [place] [address] Health Maintenance Due Date Last Done Comments Hepatitis B Vaccines (3 of 3 - 19+ 3-dose series) 05/23/2006 01/11/2006, 11/23/2005 Pneumococcal Vaccine: 50+ Years (1 of 1 - PCV) 02/28/2012 Zoster Vaccines (1 of 2) 02/28/2012 Social Influencers of Health Screening 02/05/2022 Depression Screening 02/28/2024 COVID-19 Vaccine ( - season) 2024 05/08/2021, 06/20/2020, 05/23/2020 Breast Cancer Screening 12/07/2024 12/08/19 23, 05/01/2021, 03/07/2020, Additional history exists Hypertension/CHF/CAD Annual BMP Blood Test 12/27/2025 12/27/2024 Cervical Cancer Screening: HPV 03/03/2028 03/03/2023 Colorectal Cancer Screening: Colonoscopy 08/23/2028 08/24/2023 Cholesterol Screening (Lipid Panel) 12/27/2029 12/27/2024, 11/28/2022 DTaP,Tdap,and Td Vaccines (4 - Td or Tdap) 11/28/2032 11/28/2022, 09/11/2012, 11/23/2005 RSV Immunization Adult Patients (1 - 1-dose 75+ series) 2037 HIV Screening Completed 02/21/2018 Hepatitis C Screening Completed 02/21/2018 Influenza Vaccine Completed 12/27/2024, , 05/15/2019, Additional history exists HIB Vaccines Aged Out No longer eligi [...] Procedure Name Priority Date/Time Associated Diagnosis Comments MR BRAIN WO CONTRAST Routine 01/01/2025 5:41 PM EST Dizziness HEMOGLOBIN A1C Routine 12/27/2024 9:50 AM EDT Dyslipidemia COMPREHENSIVE METABOLIC PANEL Routine 12/27/2024 9:50 AM EDT Dyslipidemia LIPID PANEL WITH REFLEX TO DIRECT LDL Routine 12/27/2024 9:50 AM EDT Dyslipidemia COLONOSCOPY Routine 08/24/2023 HPV Routine 03/03/2023 SCREENING MAMMOGRAPHY BI 2-VIEW BREAST INC CAD Routine 12/07/2022 6:18 PM EDT Encounter for screening mammogram for malignant neoplasm of breast HEPATITIS C SCREENING Routine 02/21/2018 HIV SCREENING Routine 02/21/2018 from Last 3 Months or Most Recently Relevant to Health Maintenance Results * MR Brain wo Contrast (01/01/2025 5:41 PM EST) Anatomical Region Laterality Modality Head and Neck Magnetic Resonan ce 01/02/2025 10:3 6 AM EST Impressions 01/02/2025 10:56 AM EST Impression: 1. No acute intracranial abnormality. 2. Minimal white matter hyperintensities within the supraventricular and periventricular region consistent with microvascular ischemic changes. 3. Moderate mucosal thickening of the paranasal sinuses. -------- FINAL REPORT -------- Dictated By: Minerva Aguilar Dictated Date: 01/02/2025 10:36 ET Assigned Physician: Minerva Aguilar Reviewed and Electronically Signed By: Minerva Aguilar Signed Date: 01/02/2025 10:56 ET Workstation ID: [id number] Transcribed By: Self Edit Transcribed Date: 01/02/2025 10:36 ET Narrative 01/02/2025 10:56 AM EST MRI BRAIN WITHOUT CONTRAST Clinical Statement: dizziness Comparison: None Technique: Multiplanar, multisequence MR images of the brain were obtained without contrast. Findings: There is no evidence of diffusion restriction. Minimal white matter hyperintensities within the supraventricular and periventricular region consistent with microvascular ischemic changes. Intracranial flow voids are within normal limits. The ventricular system is normal in size and morphology. The basilar cisterns are within normal limits. The craniocervical junction is grossly within normal limits. The orbits and globes are within normal limits. Moderate mucosal thickening of the paranasal sinuses. Procedure Note Minerva Aguilar MD - 01/02/2025 MRI BRAIN WITHOUT CONTRAST Clinical Statement: dizziness Comparison: None Technique: Multiplanar, multisequence MR images of the brain wereobtained without contrast. Findings: There is no evidence of diffusion restriction. Minimal whitematter hyperintensities within the supraventricular and periventricularregion consistent with microvascular ischemic changes. Intracranial flowvoids are within normal limits. The ventricular system is normal in sizeand morphology. The basilar cisterns are within normal limits. Thecraniocervical junction is grossly within normal limits. The orbits andglobes are within normal limits. Moderate mucosal thickening of theparanasal sinuses. IMPRESSION: Impression: 1. No acute intracranial abnormality. 2. Minimal white matter hyperintensities within the supraventricular andperiventricular region consistent with microvascular ischemic changes. 3. Moderate mucosal thickening of the paranasal sinuses. -------- FINAL REPORT -------- Dictated By: Minerva Aguilar Dictated Date: 01/02/2025 10:36 ET Assigned Physician: Minerva Aguilar Reviewed and Electronically Signed By: Minerva Aguilar Signed Date: 01/02/2025 10:56 ET Workstation ID: [id number] Transcribed By: Self Edit Transcribed Date: 01/02/2025 10:36 ET us Za Bee MD IM MRI PROCEDURES Final Result * (ABNORMAL) Lipid panel with reflex to direct LDL (12/27/2024 9:50 AM EDT) Cholesterol 208(H) 0 - 200 mg/dL LAB CHEMISTRY METHOD 12/27/2024 1:17 PM EDT [facility] Triglycerides 98 0 - 150 mg/dL LAB CHEMISTRY METHOD 12/27/2024 1:17 PM EDT [facility] HDL 65 >=40 mg/dL LAB CHEMISTRY METHOD 12/27/2024 1:17 PM EDT [facility] LDL Calculated 123(H) 0 - 100 mg/dL LAB CHEMISTRY METHOD 12/27/2024 1:17 PM T [facility] Comment:Estimated LDL Calcul ated using equation: Total cholesterol - HDL cholesterol - (Triglycerides/5) VLDL Cholesterol Sreedhar 19.6 mg/dL LAB CHEMISTRY METHOD 12/27/2024 1:17 PM EDT [facility] Non HDL Chol. (LDL+VLDL) 143 <145 mg/dL LAB CHEMISTRY METHOD 12/27/2024 1:17 PM EDT [facility] Chol/HDL Ratio 3.2 0.0 - 4.4 LAB CHEMISTRY METHOD 12/27/2024 1:17 PM EDT [facility] Blood Venous blood specimen / Unknown Venipuncture / Unknown 12/27/2024 9:50 AM EDT 12/27/2024 9:50 AM EDT us Za Bee MD LAB BLOOD ORDERABLES Final Resul t Performing Organization Address [facility] Co de Phone Number [facility] [address] [place] [address], [place] [phone] * Hemoglobin A1c (12/27/2024 9:50 AM EDT) Hemoglobin A1C 5.5 <6.5 % LAB CHEMISTRY METHOD 12/27/2024 2:43 PM EDT [facility] Mean Bld Glu Estim. 111 mg/dL LAB CHEMISTRY METHOD 12/27/2024 2:43 PM EDT [facility] Blood Venous blood specimen / Unknown Venipuncture / Unknown 12/27/2024 9:50 AM EDT 12/27/2024 9:50 AM EDT us Za Bee MD LAB BLOOD ORDERABLES Final Resul t Performing Organization Address [facility]/ZIP Co de Phone Number [facility] [address] [place] [address], [place] [phone] * Comprehensive metabolic panel (12/27/2024 9:50 AM EDT) Sodium 138 133 - 145 mmol/L LAB CHEMISTRY METHOD 12/27/2024 1:17 PM EDT [facility] Potassium 4.5 3.5 - 5.5 mmol/L LAB CHEMISTRY METHOD 12/27/2024 1:17 PM EDT [facility] Chloride 107 96 - 110 mmol/L LAB CHEMISTRY METHOD 12/27/2024 1:17 PM [facility] CO2 27 21 - 32 mmol/L LAB CHEMISTRY METHOD 12/27/2024 1:17 PM [facility] Anion Gap 4 3 - 11 LAB CHEMISTRY METHOD 12/27/2024 1:17 PM [facility] Glucose 84 70 - 100 mg/dL LAB CHEMISTRY METHOD 12/27/2024 1:17 PM [facility] BUN 19 5 - 25 mg/dL LAB CHEMISTRY METHOD 12/27/2024 1:17 PM [facility] Creatinine 0.84 0.50 - 1.10 mg/dL LAB CHEMISTRY METHOD 12/27/2024 1:17 PM [facility] eGFR 79 >=60 mL/min/1. 73m2 LAB CHEMISTRY METHOD 12/27/2024 1:17 PM [facility] Comment:Calculation based on the Chronic Kidney Disease Epidemiology Collaboration (CKD-EPI) equation refit without adjustment for race. BUN/Creatinine Ratio 22.6 LAB CHEMISTRY METHOD 12/27/2024 1:17 PM [facility] Calcium 9.5 8.5 - 10.5 mg/dL LAB CHEMISTRY METHOD 12/27/2024 1:17 PM [facility] AST (SGOT) 18 10 - 42 unit/L LAB CHEMISTRY METHOD 12/27/2024 1:17 PM [facility] ALT (SGPT) 43 10 - 60 unit/L LAB CHEMISTRY METHOD 12/27/2024 1:17 PM [facility] Alkaline Phosphatase 53 42 - 121 unit/L LAB CHEMISTRY METHOD 12/27/2024 1:17 PM [facility] Total Protein 7.3 6.0 - 8.0 g/dL LAB CHEMISTRY METHOD 12/27/2024 1:17 PM [facility] Albumin 4.3 3.2 - 5.0 g/dL LAB CHEMISTRY METHOD 12/27/2024 1:17 PM EDT [facility] Total Bilirubin 0.7 0.0 - 1.4 mg/dL LAB CHEMISTRY METHOD 12/27/2024 1:17 PM EDT [facility] Blood Venous blood specimen / Unknown Venipuncture / Unknown 12/27/2024 9:50 AM EDT 12/27/2024 9:50 AM EDT Za Bee MD LAB BLOOD ORDERABLES Final Resul t [facility] [address] [place] [address], * Colonoscopy (08/24/2023) Colonoscopy no interpretation , abstracted Anatomical Region Laterality Modality Other Historical Provider MD HEALTH MAINTENANCE Final Result * Cervical Cancer Screening: HPV (03/03/2023) Cervical Cancer Screening: HPV abstracted, negative Historical Provider HEALTH MAINTENANCE Final Result * SCREENING MAMMOGRAPHY [...] evidence of malignancy. BI-RADS 1 - negative Misa RICHTER IMG XR PROCEDURES Final Result * HIV Screening (02/21/2018) HIV Screening abstracted Historical Provider HEALTH MAINTENANCE Final Result * Hepatitis C Screening (02/21/2018) Hepatitis C Screening abstracted Historical Provider HEALTH MAINTENANCE Final Result from Last 3 Months or Most Recently Relevant to Health Maintenance Insurance [facility] Care Teams Phone Operator Relationship Specialty Start Date End Date Za Bee MD [address] [place] [phone] PCP - General 11/23/22
--- OUTSIDE RECORDS SUMMARY | 2025-01-18 11:35 | XMS_ITS | Encounter Summary ---
Author Organization [facility] Address [address] [place] [address] Care Team Providers Care Drawbridge Tender Name Role Phone Za Bee MD Primary Care Provider [phone] Encounter Details Date Type Department Care Team (Late Contact Info) Description 12/30/2024 Results Follow-Up Adult [address] [phone] Za Bee MD [address] [place] [address] Social History Tobacco Use Types Packs/Day Years [...] on file documented as of this encounter Plan of Treatment Upcoming Encounters Date Type Department Care Team ([facility] Contact Info) Description 01/21/2025 4:00 PM EST Evaluation Outpatient [address] [phone] Sumanth Gonzalez, KALLIE 04/17/2025 9:30 AM EST Office Visit Adult [address] [phone] Za Bee MD [address] [place] [address] documented as of this encounter Visit Diagnoses Not on filedocumented in this encounter Care Teams Drawbridge Tender Relationship Specialty Start Date End Date Za Bee MD [address] [place] [phone] PCP - General 11/23/22 documented as of this encounter
[2025-01-18 12:05] VITALS: BP 129/86; PULSE 77; RESP 18; TEMP 36.9; O2SAT 96
== END 2025-01-18 12:06 | disposition home or self-care (01) ==
PROVIDERS: Emergency Provider Emergency Medicine Emergency Medical Services; PCP Internal Medicine
DX: M62.838 Other muscle spasm (principal); S16.1XXA Strain of muscle, fascia and tendon at neck level, initial encounter; X58.XXXA Exposure to other specified factors, initial encounter; Y93.9 Activity, unspecified; Y92.9 Unspecified place or not applicable
CPT/HCPCS: 96372; 99284; J1885